=== PATIENT | female | born 1970 | race Caucasian/White ===

== ENCOUNTER 2016-12-09 17:40 | Observation (INO) ==
[2016-12-09] MEDS ORDERED: ALBUTEROL 2.5 MG/3 ML NEB RESP TX STA ×2 (18:17→18:32)
[2016-12-09] MEDS ORDERED: FUROSEMIDE 100 MG/10 ML VIAL IV STA (18:45)
[2016-12-09] MEDS ORDERED: cefTRIAXone 1,000 MG in SODIUM CHLORIDE 0.9% 100 ML IV STA (18:45)
[2016-12-09] MEDS ORDERED: methylPREDNISolone SOD SUC 125 MG/2 ML VIAL IV STA (18:45)
[2016-12-09] MEDS ORDERED: AZITHROMYCIN INJ 500 MG in SODIUM CHLORIDE 0.9% 250 ML IV STA (18:45)
[2016-12-09] MEDS ORDERED: ONDANSETRON 4 MG/2 ML VIAL IV STA (18:45)
[2016-12-09] MEDS ORDERED: ALBUTEROL 2.5 MG/3 ML NEB RESP TX SCH (19:00)
[2016-12-09] MEDS ORDERED: methylPREDNISolone SOD SUC 125 MG/2 ML VIAL ONE (19:23)
[2016-12-09] MEDS ORDERED: ONDANSETRON 4 MG/2 ML VIAL ONE (19:23)
[2016-12-09] MEDS ORDERED: AZITHROMYCIN 500 MG VIAL IV ONE ×2 (19:23→20:38)
[2016-12-09] MEDS ORDERED: FUROSEMIDE 40 MG/4 ML VIAL ONE (19:23)
[2016-12-09] MEDS ORDERED: cefTRIAXone 1,000 MG VIAL ONE (19:23)
[2016-12-09 19:24] LABS: ABG Base Excess -2.7 MMOL/L (-2.5-2.5); ABG HCO3 22.1 MMOL/L (20-26); ABG Oxygen Saturation 97.1 % (95-100); ABG PCO2 32.8 MM HG (35-48); ABG PH 7.413 (7.35-7.45); ABG PO2 87.8 MM HG (80-95); ABG TCO2 18.1 MMOL/L (23-27); Allen Test Positive; Pt O2 Delivery Device Room Air
[2016-12-09] MEDS ORDERED: IBUPROFEN 600 MG TABLET PO STA (19:50)
[2016-12-09 20:05] LABS: Basophils # 0.1 10*3/uL (0.0-0.2); Basophils % 0.4 % (0.0-0.8); Eosinophils # 0.7 10*3/uL (0.0-0.87); Eosinophils % 4.2 % (0.00-10.9); Hemoglobin 13.6 GM/DL (12.0-16.0); Immature Granulocytes % 0.5 %; Immature Granulocytes Absolute 0.09 #; Lymphocytes # 3.3 10*3/uL (1.4-4.0); Lymphocytes % 19.3 % (21.3-54.2); Mean Corpuscular HGB Conc 33.2 GM/DL (32-36); Mean Corpuscular Hemoglobin 28 PG (27-34); Mean Corpuscular Volume 85.6 FL (87-102); Mean Platelet Volume 9.8 FL (9.6-12.0); Monocytes # 0.8 10*3/uL (0.11-0.8); Monocytes % 4.6 % (1.7-12.7); Neutrophils # 12.2 10*3/uL (1.4-7.4); Platelet Count 320 10*3/uL (130-400); Red Blood Count 4.79 10*6/uL (3.8-5.5); Red Cell Distribution Width 13.1 % (9.3-17.3); White Blood Count 17.2 10*3/uL (4.5-13.71)
[2016-12-09 20:12] LABS: PT Patient Result 10.2 SECS
[2016-12-09] MEDS ORDERED: IBUPROFEN 200 MG TABLET ONE (20:32)
[2016-12-09] MEDS ORDERED: IBUPROFEN 400 MG TABLET ONE (20:32)
[2016-12-09 20:34] LABS: Alanine Aminotransferase 40 U/L (13-56); Albumin 3.7 G/DL (3.4-5.0); Alkaline Phosphatase 91 U/L (45-117); Aspartate Amino Transferase 24 U/L (0-37); Blood Urea Nitrogen 12 MG/DL (7-18); Calcium 8.9 MG/DL (8.5-10.1); Glucose 117 MG/DL (74-106); Magnesium 2.2 MG/DL (1.8-2.4); Osmolality,Calculated 288.7 MOS/KG (273-304); Potassium 3.6 MMOL/L (3.5-5.1); Sodium 145 MMOL/L (136-145); Total Protein 7.2 G/DL (6.4-8.3); Troponin I Only < 0.015 NG/ML (0.00-0.045)
[2016-12-09 21:05] LABS: Apearance,Urine CLOUDY (Clear); Bilirubin,Urine Negative (Negative); Blood, Urine Large mg/dL (Negative); Glucose,Urine (UA) Negative (Negative); Ketones,Urine Negative (Negative); Mucus,Urine Occasional /LPF (Occasional); Nitrite,Urine Negative (Negative); Protein,Urine 30 MG/DL; RBC,Urine 5974 /HPF (0-4); Urine Color Red (Yellow); Urine Specific Gravity 1.006 (1.001-1.035); Urine Urobilinogen < 2.0 EU/DL (0.2-1.0); WBC,Urine 41 /HPF (0-6)
--- NOTE | 2016-12-09 21:20 | Emergency Department Note ---
IVianca Sierra, am scribing for, and in the presence of, Noé Dillard MD 18:45. Gilma Betancur Charles R, MD, personally performed the services described in this documentation, ascribed by Jesusita Coley in my presence, and it is both accurate and complete . Arrival - Arrival Chief Complaint: Upper Respiratory Stated Complaint: SOB ED Nursing Triage Note: C/O HAVING COUGHING AND CONGESTION X 2 MONTHS, STATES SHE IS HAVING A PANIC ATTACK RIGHT NOW , DENIES HAVING INCREASE TEMP., STATES SHE HAS BEEN WHEEZING FOR THE LAST TWO MONTHS, NON-PRODUCTIVE COUGHING , ALSO STATES HER BLOOD PRESSURE IS ELEVATED., STATES HAS BEEN EVALUATED AT [facility] AND GOT DX WITH SINUSITITIS Mode of Arrival: Ambulatory Limitations: No Limitations Source: Patient Time Seen by Provider: 12/09/16 18:12 - History of Present Illness HPI Narrative: Pt is a 45 y/o female that came to the ED with c/o SOB and wheezing that has been going on for a couple of weeks now. Pt states sxs have gotten worse today. She denies having asthma, smoking, fever, or sore throat. Pt states her blood pressure fluctuates but denies being on blood pressure medication. She reports she has bad allergies that she takes allergy medication and flonase for. Pt states she was diagnosed with sinusititis last week. She states she panicked when she could not breath today. No other complaints/pain in ED. Onset (ago): week(s) Consistency: constant Severity: mild, moderate Severity scale (1-10): 4 Quality: other Date of Last Menstrual Period: NOW Allergies/Adverse Reactions: Allergies Allergy/AdvReac Type Severity Reaction Status Date / Time No Known Allergies Allergy Verified 12/09/16 17:48 Home Medications: Home Medications Medication Instructions Recorded Confirmed Type No Known Home Medications [No 12/09/16 12/09/16 History Known Home Medications] Review of System - Review of System 12 point system: reviewed and no additional remarkable complaints except as stated - Review of System Constitutional: Absent: fever Head/Ears/Nose/Throat: Absent: sore throat Respiratory: Present: wheezing, other (SOB) Cardiovascular: Absent: chest pain Gastrointestinal: Absent: abdominal pain, nausea, vomiting, diarrhea Musculoskeletal: Absent: arm pain, back pain, leg pain, neck pain Neurological: Absent: headache, numbness, confusion Psychiatric: Present: anxiety (when could not breath) Medical,Surgical,& Family Hx - Social History Smoking Status: Never smoker Frequency of Alcohol Use: Occasionally Type of Drug Use: None Exam Vital Signs: Vital Signs Temperature 98.8 F 12/09/16 17:43 Pulse Rate 88 12/09/16 21:30 Respiratory Rate 18 12/09/16 21:30 Blood Pressure 122/74 12/09/16 21:30 O2 Sat by Pulse Oximetry 98 12/09/16 21:30 - General General appearance: alert, in no apparent distress - Head Head exam: Present: atraumatic, normocephalic - Eye Eye exam: Present: PERRL, EOMI - ENT ENT exam: Present: mucous membranes moist. Absent: mucous membranes dry - Neck Neck exam: Present: full ROM. Absent: tenderness - Chest Chest inspection: Present: symmetric chest wall rise. Absent: tenderness - Respiratory Respiratory exam: Present: wheezes (both sides and wide spread wheezing), other (Dyspnea) - Cardiovascular Cardiovascular exam: Present: tachycardia, normal heart sounds - Abdominal Exam Abdominal exam: Present: soft. Absent: tenderness - Extremities Exam Extremities exam: Present: full ROM. Absent: tenderness - Back Exam Back exam: Present: full ROM. Absent: tenderness - Neurological Exam Neurological exam: Present: alert, oriented X3, CN II-XII intact. Absent: motor sensory deficit - Psychiatric Psychiatric exam: Present: normal affect, normal mood - Skin Skin exam: Present: warm, dry Course - Consultations Consultation #1: Dr. Blanton will admit patient Time: 22:50 Results - Labs CBC & BMP: 12/09/16 19:31 12/09/16 19:45 Lab Results: I have reviewed the patients labs Labs: Laboratory Tests 12/09/16 18:45 ABG pCO2 32.8 L ABG Total CO2 18.1 L ABG Base Excess -2.7 L Laboratory Tests 12/09/16 19:31 WBC 17.2 H MCV 85.6 L Lymph % (Auto) 19.3 L Neut # (Auto) 12.2 H Microbiology 12/09/16 20:10 Nasal Aspirate Influenza Types A,B Antigen (ABDIFATAH) - Final Negative for Influenza A Ag Negative for Influenza B Ag Laboratory Tests 12/09/16 19:45 Chloride 108 H Anion Gap 17.6 H Glucose 117 H Albumin/Globulin Ratio 1.0 L Laboratory Tests 12/09/16 19:45 Urine Urobilinogen < 2.0 H Urine Leukocytes Moderate H Critical Care Time Critical Care Time: Yes Total Critical Care Time: 60 Disposition Clinical Impression: Upper respiratory infection, Bronchospasm, Bronchitis, UTI (urinary tract infection) Case discussed with: patient, patient's family Disposition: Still a Patient Condition: Stable Time of Disposition: 22:49
--- NOTE | 2016-12-09 23:15 | Hospitalist History & Physical ---
Assessment and Plan (1) Bronchospasm with bronchitis, acute Status: Acute Current Visit: Yes (2) Evidence of airways hyperreactivity without diagnosis of asthma Status: Acute Current Visit: Yes (3) Allergic rhinitis Status: Acute Assessment and plan: Plan: 12/09: We'll observe overnight, treat with antibiotics, steroids, DuoNeb's and supplemental oxygen. Suspect she may have underlying, undiagnosed asthma given her history. Her symptoms may be exacerbated by animals at home. She does not have an oxygen requirement, she is not in any respiratory distress, however she is still wheezing a great deal. Would be prudent to watch her at least overnight. Current Visit: Yes History of Present Illness Chief complaint: persistent cough and wheezing History of present illness: Ms. Perez is a 45 year old female with reportedly no past medical history is here with 2 weeks of cough and wheezing, acutely worsening over the last 2 days. She's never been formally diagnosed with asthma however she is had "allergy problems"most of her life. She has 2 cats at home, she also notes that strong scents including perfume have lately made her very sensitive and have exacerbated her wheezing. She is a mildly productive cough, no fever or chills nausea vomiting or diarrhea. Tonight she felt like she just "could not get enough air," and came to the emergency room. She states she only takes over -the-counter allergy medicines as needed. Home Medications Medication Instructions Recorded Confirmed Type No Known Home Medications [No 12/09/16 12/09/16 History Known Home Medications] Allergies Allergy/AdvReac Type Severity Reaction Status Date / Time No Known Allergies Allergy Verified 12/09/16 17:48 Medical,Surgical,& Family Hx - Medical History Cardio: No history of: Hypertension Endocrine: No history of: Diabetes Mellitus (NIDDM) Respiratory: History of: Asthma (suspect undiagnosed underlying asthma) Gastrointestinal: No history of: GERD - Surgical History Additional Surgical History: Breast reduction surgery - Family History Family History: noncontributory - Social History Smoking Status: Former smoker (quit 20 years ago) Have you smoked in the last 12 months: No Frequency of Alcohol Use: Occasionally Type of Drug Use: None Marital Status: Unknown Functional capacity: independent ambulation Review of systems: A 12 point review of systems is negative except as specified in the HPI Exam - Constitutional Vitals: Period Temp Pulse Resp BP Sys/Nunez Pulse Ox Last 24 Hr 98.8 F 78-132 18-29 118-196/74-113 96-100 Exam: EXAM: CONSTITUTIONAL: non toxic, NAD HEENT: NC, AT, OP benign, LUANN, EOMI CV: RRR no m/g/r RESP: Coarse bilaterally with scattered expiratory wheezes and prolonged expiratory phase GI: abd soft, NT, ND, +bowel sounds INTEGUMENTARY: no lesions or rash EXTREMITIES: no c/c/e NEURO: no focal deficits PSYCH: unremarkable, A/O x3 Results - Labs CBC & BMP: 12/09/16 19:31 12/09/16 19:45 Lab Results: I have reviewed the past 24 hour labs - Diagnostic Findings Procedure: Chest x-ray: image reviewed by me
[2016-12-09] MEDS ORDERED: ACETAMINOPHEN 325 MG TABLET PO PRN (23:34)
[2016-12-09] MEDS ORDERED: BISACODYL 5 MG TABLET PO PRN (23:34)
[2016-12-09] MEDS ORDERED: ONDANSETRON 4 MG/2 ML VIAL IV PRN (23:34)
[2016-12-09] MEDS ORDERED: MORPHINE 2 MG/1 ML SYRINGE IV PRN (23:34)
[2016-12-09] MEDS ORDERED: guaiFENesin/DM ER 600-30 MG TABLET PO PRN (23:34)
[2016-12-10] MEDS ORDERED: LEVOFLOXACIN INJ 500 MG in PREMIX 1 EACH IV SCH (01:00)
[2016-12-10] MEDS: ALBUTEROL/IPRATROPIUM 3 ML NEB RESP TX SCH ×4 (02:48→14:39)
[2016-12-10] MEDS: methylPREDNISolone SOD SUC 40 MG/1 ML VIAL IV SCH ×2 (03:32→13:43)
[2016-12-10 05:54] LABS: Basophils % 0.1 % (0.0-0.8); Hematocrit 38.7 VOL% (35.7-47.0); Hemoglobin 12.8 GM/DL (12.0-16.0); Immature Granulocytes % 0.7 %; Lymphocytes % 6.5 % (21.3-54.2); Mean Corpuscular HGB Conc 33.1 GM/DL (32-36); Mean Corpuscular Hemoglobin 28 PG (27-34); Mean Corpuscular Volume 84.9 FL (87-102); Monocytes # 0.1 10*3/uL (0.11-0.8); Monocytes % 0.7 % (1.7-12.7); Neutrophils # 13.8 10*3/uL (1.4-7.4); Platelet Count 340 10*3/uL (130-400); Red Blood Count 4.56 10*6/uL (3.8-5.5); Red Cell Distribution Width 13.2 % (9.3-17.3)
[2016-12-10 06:18] LABS: Calcium 8.8 MG/DL (8.5-10.1); Hypochromasia 1+; Lymphocytes 6 % (20-55); Osmolality,Calculated 284.1 MOS/KG (273-304); Platelet Estimate Adequate; Potassium 4.4 MMOL/L (3.5-5.1); Segmented Neutrophils 93 % (50-85); Total Cells Counted 100
[2016-12-10] MEDS ORDERED: ENOXAPARIN 40 MG/0.4 ML SYRINGE SUBCUT SCH (09:00)
[2016-12-10] MEDS ORDERED: MONTELUKAST 10 MG TABLET PO SCH (09:00)
[2016-12-10] MEDS ORDERED: PANTOPRAZOLE 40 MG TABLET PO SCH (09:00)
--- NOTE | 2016-12-10 09:42 | XRay Report ---
History: Shortness of breath Date: 12/09/2016 Study: Chest x-ray PA and lateral Comparison exam: No previous chest x-ray available The cardiomediastinal silhouette and pulmonary vasculature are unremarkable. There is some mild increased strandy density in the right infrahilar region. The lungs and pleural spaces are otherwise clear. There is mild thoracic spondylosis. Impression: Mild right infrahilar atelectasis/infiltrate. This could represent mild pneumonia. Followup films are recommended. Otherwise no acute process PROCEDURE INTERPRETED AT [facility] DEPARTMENT OF RADIOLOGY Final Report Signed by: Dr. Miroslava Montero
[2016-12-10 12:24] VITALS: BP 134/77
--- NOTE | 2016-12-10 16:37 | Discharge Summary ---
Hospital Course - Hospital Course Hospital Course: Mrs Perez presented with severe wheezing, a first fo rher. She has had allergic rhinitis for her adult life and wheezes sometimes, but never so much as she was on presentation. She has never been diagnosed with asthma. She responded to IV steroids, antibiotics and nebs and her wheezing has resolved today. She wants to go home. I will send her home on burst of steroids, levaquin fo r7 days and with an albuterol inhaler and singulair. She will follow up with DR Mendoza and I will also refer her to [facility] for consideration of a diagnosis of asthma and allergy testing. - Time spent with patient Time with patient DS: Greater than 30 minutes Diagnosis - Discharge Diagnosis (1) Bronchitis Status: Acute (2) Bronchospasm with bronchitis, acute Status: Acute (3) Evidence of airways hyperreactivity without diagnosis of asthma Status: Acute (4) Allergic rhinitis Status: Acute Specialty Discharge - Follow Up or Referrals Follow up with: [facility] [Other] (in a week to follow up hospital stay fo rbronchitis/asthma) Toño Hinton MD [Physician] - 1 Month (chronic wheezing, allergic rhinitis, hospitalized with bronchitis) - Discharge Medications New Albuterol Sulfate [Ventolin HFA] 2 puff INH Q4H PRN #1 inhaler PRN Reason: Shortness Of Breath/Wheezing guaiFENesin/DM ER 600-30 [Mucinex Dm] 1 tablet PO BID PRN #0 tablet PRN Reason: Congestion Levofloxacin Tab [Levaquin Tab] 500 mg PO DAILY #7 tablet Montelukast Tab [Singulair Tab] 10 mg PO DAILY #30 tablet predniSONE TAB [PredniSONE] 40 mg PO DAILY #5 tablet Discharge Plan - Discharge Data Disposition: Disch To Home/Self Care Condition at Discharge: Stable Discharge Diet: advance to your usual diet Activity: resume usual activities as tolerated - Discharge Medications New Albuterol Sulfate [Ventolin HFA] 2 puff INH Q4H PRN #1 inhaler PRN Reason: Shortness Of Breath/Wheezing guaiFENesin/DM ER 600-30 [Mucinex Dm] 1 tablet PO BID PRN #0 tablet PRN Reason: Congestion Levofloxacin Tab [Levaquin Tab] 500 mg PO DAILY #7 tablet Montelukast Tab [Singulair Tab] 10 mg PO DAILY #30 tablet predniSONE TAB [PredniSONE] 40 mg PO DAILY #5 tablet - Follow Up or Referral Follow Up: [facility] [Other] (in a week to follow up hospital stay fo rbronchitis/asthma) Toño Hinton MD [Physician] - 1 Month (chronic wheezing, allergic rhinitis, hospitalized with bronchitis) - Forms/Instructions Instructions: Asthma (DC), Asthma (GEN) Exam - Constitutional Vitals: Period Temp Pulse Resp BP Sys/Nunez Pulse Ox Last 24 Hr 98.2 F-98.9 F 76-117 18-23 115-155/76-91 92-100 General appearance: no acute distress, over weight - Head Head exam: Present: normocephalic, atraumatic - Eye Eye exam: Present: EOMI. Absent: scleral icterus - Respiratory Respiratory exam: Present: clear to auscultation bilaterally - Cardiovascular Cardiovascular exam: Present: regular rate and rhythm - GI/Abdominal GI/Abdominal exam: Present: normal bowel sounds, soft. Absent: tenderness - Extremities Exam Extremities exam: Absent: edema - Neurological Exam Neurological exam: Present: alert, oriented X3 - Skin Skin exam: Present: warm, dry Discharge Results Labs on day of discharge: Labs from last 24 hours 12/10/16 12/10/16 05:35 05:35 WBC 15.0 H RBC 4.56 Hgb 12.8 Hct 38.7 MCV 84.9 L MCH 28 MCHC 33.1 RDW 13.2 Plt Count 340 MPV 10.0 Neut % (Auto) 92.0 H Lymph % (Auto) 6.5 L Churchill % (Auto) 0.7 L Eos % (Auto) 0.0 Baso % (Auto) 0.1 Neut # (Auto) 13.8 H Lymph # (Auto) 1.0 L Churchill # (Auto) 0.1 L Eos # (Auto) 0.0 Baso # (Auto) 0.0 Total Counted 100 Immature Gran % 0.7 Nucleated RBC % 0.0 Immature Gran # 0.10 Segmented Neutrophils 93 H Lymphocytes 6 L Monocytes 1 L Nucleated RBCs # 0.00 Platelet Estimate Adequate Hypochromasia 1+ Morphology Comment Sodium 142 Potassium 4.4 Chloride 106 Carbon Dioxide 23 Anion Gap 17.4 H BUN 11 Creatinine 0.80 GFR Calculation 109 BUN/Creatinine Ratio 13.00 Glucose 153 H Calculated Osmolality 284.1 Calcium 8.8 Preliminary micro results at discharge 12/09/16 Unknown Urine Culture - Preliminary Urine,Voided No Growth at 12 hours. DS: Provider Date of admission: 12/09/16 23:34 Primary care physician: . No PCP Attending physician on admission: Nabila Pham MD Discharging clinician: Nabila Pham MD
== END 2016-12-10 17:00 | disposition home or self-care (01) ==
LOC: N.EDINP 17:40 → N.ED 17:40 → N.2E 12-10 00:25
PROVIDERS: ADMIT Internal Medicine; ATTEND Internal Medicine